=== PATIENT | female | born 1935 | race Caucasian/White ===

== ENCOUNTER 2023-01-17 16:37 | Inpatient (IN) | payer MEDICARE ==
[2023-01-17 17:05] LABS: INR-International Normal Ratio 1.2; Prothrombin Time 16.1 sec (12.0-14.7)
[2023-01-17 19:34] LABS: SARS-CoV-2 NAA Rapid Test Not Detected (NotDetected)
[2023-01-17] MEDS ORDERED: Metoprolol Tartrate 5 MG/5 ML VIAL ONE (20:08)
[2023-01-17] MEDS ORDERED: NOREPINEPHRINE 8 MG/250 ML-D5W 250 ML IVPB SCH (21:15)
[2023-01-17] MEDS ORDERED: Acetaminophen 325 MG TAB PO PRN (21:31)
[2023-01-17] MEDS ORDERED: Ondansetron PF 4 MG/2 ML Vial IVP PRN (21:31)
[2023-01-17] MEDS ORDERED: Nitroglycerin 0.4 MG TAB (25 Tab Bottle) SL PRN (21:31)
[2023-01-17] MEDS ORDERED: Metoprolol Tartrate 25 MG TAB PO SCH (21:45)
[2023-01-17] MEDS ORDERED: Atorvastatin Calcium 40 MG TAB PO SCH (21:45)
[2023-01-17 22:11] LABS: Hemoglobin 13.7 g/dL (12.0-16.0); Platelet Count 170 10x3/uL (130-400)
[2023-01-17] MEDS ORDERED: Sodium Chloride 0.9% 1,000 ML IV SCH (22:15)
[2023-01-17 22:38] LABS: Troponin I 23.551 ng/mL (< 0.028)
[2023-01-17 22:52] VITALS: BMI 23.8
[2023-01-17] MEDS: Montelukast Sodium 10 mg Tablet PO SCH (23:33)
[2023-01-18] MEDS ORDERED: Morphine 2 MG/ML VIAL SLOW IVP SCH (01:00)
[2023-01-18 03:47] LABS: #Lymphocytes 0.7 thou/uL (1.20-3.40); #Neutrophils 13.2 thou/uL (1.40-6.50); %Basophils 0.1 % (0.0-1.0); %Eosinophils 0.1 % (0.0-10.0); %Lymphocytes 4.7 % (21.0-51.0); %Monocytes 6.8 % (0.0-10.0); %Neutrophils 88.4 % (42.0-75.0); Mean Corpuscular HGB CONC 31.9 g/dL (32.0-36.0); Mean Corpuscular Hemoglobin 29.1 pg (27.0-31.0); Mean Corpuscular Volume 91.2 fl (78.0-98.0); Mean Platelet Volume 8.4 fL (7.4-10.4); Platelet Count 148 10x3/uL (130-400); RBC Distribution Width 12.3 % (11.5-14.5); Red Blood Cell (RBC) Count 4.82 mill/uL (4.20-5.40); White Blood Cell (WBC) Count 14.9 10x3/uL (4.8-10.8)
[2023-01-18 04:07] LABS: Anion Gap 13 mmol/L (10-20); BUN (Urea Nitrogen) 16 mg/dL (9.8-20.1); Calc. Creatinine Clearance 48 mL/min (70-130); Carbon Dioxide 20 mmol/L (23-31); Cardiac Risk 2.9 (Less than 4.5); Chloride 101 mmol/L (98-107); Cholesterol 178 mg/dl (< 200 Desired); Estimated GFR 83; Glucose 190 mg/dL (83-110); HDL Cholesterol 61 mg/dL (>60 Neg Risk); LDL Cholesterol, Calculated 105 mg/dL; Potassium 4.4 mmol/L (3.5-5.1); Sodium 130 mmol/L (136-145); Triglycerides 60 mg/dL (Less than 150)
[2023-01-18 04:24] LABS: Critical Call Chem Troponin I RESULT DECREASING
[2023-01-18] MEDS: Levothyroxine Sodium 100 MCG TAB PO SCH (05:37)
[2023-01-18] MEDS: Metoprolol Tartrate 25 MG TAB PO SCH ×2 (07:29→20:49)
[2023-01-18] MEDS ORDERED: Furosemide 20 MG/2 ML VIAL SLOW IVP SCH (08:00)
[2023-01-18] MEDS: Aspirin 325 mg Enteric Coated Tablet PO SCH (08:01)
[2023-01-18] MEDS: DOPamine 400 MG/D5W 250 ML 250 ML IVPB SCH (08:02)
[2023-01-18] MEDS ORDERED: Milrinone 20 MG in Sodium Chloride 0.9% 100 ML IVPB SCH (11:30)
[2023-01-18] MEDS: Heparin 10,000 UNITS/ 10 ML VIAL SLOW IVP SCH (12:24)
[2023-01-18] MEDS: Milrinone Lactate/D5W 20 MG in Premix Bag 1 BAG IV SCH (16:46)
[2023-01-18 18:46] LABS: PTT 155.7 sec (22.9-36.1)
[2023-01-18] MEDS: Atorvastatin Calcium 40 MG TAB PO SCH (20:56)
[2023-01-18] MEDS: Montelukast Sodium 10 mg Tablet PO SCH (20:56)
[2023-01-19] MEDS: DOPamine 400 MG/D5W 250 ML 250 ML IVPB SCH (01:06)
[2023-01-19 04:27] LABS: #Lymphocytes 1.6 thou/uL (1.20-3.40); #Monocytes 1.1 thou/uL (0.11-0.59); %Basophils 0.2 % (0.0-1.0); %Lymphocytes 9.3 % (21.0-51.0); %Monocytes 6.7 % (0.0-10.0); %Neutrophils 83.8 % (42.0-75.0); Hemoglobin 12.8 g/dL (12.0-16.0); Mean Corpuscular HGB CONC 33.1 g/dL (32.0-36.0); Mean Corpuscular Hemoglobin 29.7 pg (27.0-31.0); Mean Platelet Volume 8.6 fL (7.4-10.4); Platelet Count 158 10x3/uL (130-400); RBC Distribution Width 12.2 % (11.5-14.5); Red Blood Cell (RBC) Count 4.32 mill/uL (4.20-5.40); White Blood Cell (WBC) Count 16.7 10x3/uL (4.8-10.8)
[2023-01-19 04:35] LABS: Hemoglobin A1c 5.7 % (4.0-6.0)
[2023-01-19 04:54] LABS: ALT (SGPT) 26 U/L (8-55); AST (SGOT) 69 U/L (5-34); Alkaline Phosphatase 80 U/L (40-110); Anion Gap 11 mmol/L (10-20); BUN (Urea Nitrogen) 24 mg/dL (9.8-20.1); Bilirubin, Total 0.7 mg/dL (0.2-1.2); Calc. Creatinine Clearance 45 mL/min (70-130); Calcium 10.1 mg/dL (7.8-10.44); Carbon Dioxide 23 mmol/L (23-31); Chloride 97 mmol/L (98-107); Estimated GFR 76; Globulin 2.4 g/dL (2.4-3.5); Glucose 125 mg/dL (83-110); Magnesium 1.8 mg/dL (1.6-2.6); Potassium 4.1 mmol/L (3.5-5.1); Protein, Total 5.4 g/dL (5.8-8.1); Sodium 127 mmol/L (136-145)
[2023-01-19] MEDS: Heparin 10,000 UNITS/ 10 ML VIAL SLOW IVP SCH ×2 (04:56→11:58)
[2023-01-19] MEDS: Levothyroxine Sodium 100 MCG TAB PO SCH (06:53)
[2023-01-19] MEDS: Metoprolol Tartrate 25 MG TAB PO SCH (08:19)
[2023-01-19] MEDS: Aspirin 325 mg Enteric Coated Tablet PO SCH (08:28)
[2023-01-19] MEDS: Metoprolol Tartrate 5 MG/5 ML VIAL IVP PRN (09:32)
[2023-01-19] MEDS: Heparin 25,000 units/D5W 500 ML IVPB SCH (09:35)
[2023-01-19] MEDS ORDERED: Metoprolol Tartrate 5 MG/5 ML VIAL IVP SCH (16:00)
[2023-01-19] MEDS: Montelukast Sodium 10 mg Tablet PO SCH (20:52)
[2023-01-19] MEDS: Atorvastatin Calcium 40 MG TAB PO SCH (22:18)
[2023-01-19 22:47] LABS: Hemoglobin 12.3 g/dL (12.0-16.0); Platelet Count 149 10x3/uL (130-400)
[2023-01-20] MEDS: Metoprolol Tartrate 25 MG TAB PO SCH ×5 (01:16→20:22)
[2023-01-20] MEDS: ALPRAZolam 0.25 MG TAB PO SCH ×3 (01:16→20:22)
[2023-01-20] MEDS: DOPamine 400 MG/D5W 250 ML 250 ML IVPB SCH ×2 (02:51→14:26)
[2023-01-20] MEDS: Milrinone Lactate/D5W 20 MG in Premix Bag 1 BAG IV SCH ×2 (02:51→23:59)
[2023-01-20 04:22] LABS: #Lymphocytes 1.2 thou/uL (1.20-3.40); #Monocytes 0.7 thou/uL (0.11-0.59); #Neutrophils 8.4 thou/uL (1.40-6.50); %Basophils 0.1 % (0.0-1.0); %Eosinophils 0.1 % (0.0-10.0); %Lymphocytes 11.6 % (21.0-51.0); %Neutrophils 81.1 % (42.0-75.0); Hemoglobin 12.2 g/dL (12.0-16.0); Mean Corpuscular HGB CONC 32.2 g/dL (32.0-36.0); Mean Corpuscular Hemoglobin 28.8 pg (27.0-31.0); Mean Corpuscular Volume 89.4 fl (78.0-98.0); Mean Platelet Volume 8.1 fL (7.4-10.4); Platelet Count 151 10x3/uL (130-400); RBC Distribution Width 11.9 % (11.5-14.5); Red Blood Cell (RBC) Count 4.25 mill/uL (4.20-5.40); White Blood Cell (WBC) Count 10.3 10x3/uL (4.8-10.8)
[2023-01-20 04:42] LABS: Anion Gap 12 mmol/L (10-20); BUN (Urea Nitrogen) 20 mg/dL (9.8-20.1); Calc. Creatinine Clearance 54 mL/min (70-130); Calcium 9.6 mg/dL (7.8-10.44); Carbon Dioxide 23 mmol/L (23-31); Chloride 95 mmol/L (98-107); Estimated GFR 84; Glucose 158 mg/dL (83-110); Magnesium 1.8 mg/dL (1.6-2.6); Potassium 3.7 mmol/L (3.5-5.1); Sodium 126 mmol/L (136-145)
[2023-01-20] MEDS: Levothyroxine Sodium 100 MCG TAB PO SCH (06:08)
[2023-01-20] MEDS: Aspirin 325 mg Enteric Coated Tablet PO SCH (09:31)
[2023-01-20] MEDS ORDERED: Artificial Tear Sol 15 ML BOT EA EYE PRN (09:55)
[2023-01-20] MEDS ORDERED: Bisacodyl 5 MG TAB PO PRN (09:55)
[2023-01-20] MEDS ORDERED: Senokot S 8.6-50 MG TAB PO PRN (09:55)
[2023-01-20] MEDS ORDERED: Moisturizing Cream (Eucerin) 113 GM JAR TOP PRN (09:55)
[2023-01-20] MEDS ORDERED: Polyethylene Glycol 3350 17 GM Packet PO SCH (10:00)
[2023-01-20] MEDS: Heparin 25,000 units/D5W 500 ML IVPB SCH (18:18)
[2023-01-20] MEDS: Atorvastatin Calcium 40 MG TAB PO SCH (20:22)
[2023-01-20] MEDS: Montelukast Sodium 10 mg Tablet PO SCH (20:22)
[2023-01-21] MEDS: DOPamine 400 MG/D5W 250 ML 250 ML IVPB SCH ×2 (02:05→23:39)
[2023-01-21 04:34] LABS: Bacteria/HPF None Seen HPF (None Seen); Bilirubin Negative (Negative); Blood, Urine 1+ (Negative); Clarity Clear (Clear); Glucose, Urine (Dipstick) Normal (Negative); Ketone, Urine Negative (Negative); Leukocyte 500 Leu/uL (Negative); Nitrite Negative (Negative); Protein, Urine (Dipstick) Negative (Neg-Trace); Specific Gravity, Urine 1.014 (1.002-1.036); Squamous Epithelial None Seen HPF (0-3); Urobilinogen 3 mg/dL (Less than 2); WBC/HPF 21-50 HPF (0-3)
[2023-01-21] MEDS: Levothyroxine Sodium 100 MCG TAB PO SCH (06:04)
[2023-01-21 06:33] LABS: Hemoglobin 11.8 g/dL (12.0-16.0); Platelet Count 164 10x3/uL (130-400)
[2023-01-21 06:56] LABS: Anion Gap 8 mmol/L (10-20); BUN (Urea Nitrogen) 18 mg/dL (9.8-20.1); Calc. Creatinine Clearance 52 mL/min (70-130); Calcium 9.4 mg/dL (7.8-10.44); Carbon Dioxide 28 mmol/L (23-31); Chloride 97 mmol/L (98-107); Estimated GFR 84; Glucose 145 mg/dL (83-110); Potassium 3.8 mmol/L (3.5-5.1); Sodium 129 mmol/L (136-145)
[2023-01-21] MEDS: ALPRAZolam 0.25 MG TAB PO SCH ×2 (08:48→22:09)
[2023-01-21] MEDS: Aspirin 325 mg Enteric Coated Tablet PO SCH (08:48)
[2023-01-21] MEDS: Metoprolol Tartrate 25 MG TAB PO SCH ×2 (08:49→19:36)
[2023-01-21] MEDS ORDERED: FLU VACC QS2022-23(65YR UP)/PF 240 MCG/0.7 ML SYRINGE IM ONE (09:00)
[2023-01-21] MEDS: Polyethylene Glycol 3350 17 GM Packet PO SCH (10:04)
[2023-01-21] MEDS ORDERED: Furosemide 40 MG/4 ML VIAL SLOW IVP SCH (10:45)
[2023-01-21] MEDS: Montelukast Sodium 10 mg Tablet PO SCH (19:36)
[2023-01-21] MEDS: Atorvastatin Calcium 40 MG TAB PO SCH (19:36)
[2023-01-21] MEDS: Milrinone Lactate/D5W 20 MG in Premix Bag 1 BAG IV SCH (19:36)
[2023-01-22] MEDS: Metoprolol Tartrate 5 MG/5 ML VIAL IVP PRN ×2 (03:57→13:16)
[2023-01-22 05:35] LABS: Anion Gap 10 mmol/L (10-20); BUN (Urea Nitrogen) 19 mg/dL (9.8-20.1); Calc. Creatinine Clearance 50 mL/min (70-130); Calcium 9.3 mg/dL (7.8-10.44); Carbon Dioxide 27 mmol/L (23-31); Chloride 97 mmol/L (98-107); Estimated GFR 83; Glucose 136 mg/dL (83-110); Potassium 3.4 mmol/L (3.5-5.1); Sodium 131 mmol/L (136-145)
[2023-01-22 05:55] LABS: Free T4 (Free Thyroxine) 1.26 ng/dL (0.70-1.48)
[2023-01-22] MEDS: Levothyroxine Sodium 100 MCG TAB PO SCH (06:24)
[2023-01-22] MEDS: Aspirin 325 mg Enteric Coated Tablet PO SCH (08:48)
[2023-01-22] MEDS: Polyethylene Glycol 3350 17 GM Packet PO SCH (08:48)
[2023-01-22] MEDS: ALPRAZolam 0.25 MG TAB PO SCH ×2 (08:48→20:38)
[2023-01-22] MEDS: Famotidine 20 MG TAB PO SCH (08:48)
[2023-01-22] MEDS: Metoprolol Tartrate 25 MG TAB PO SCH ×2 (08:48→20:39)
[2023-01-22] MEDS ORDERED: Metoprolol Tartrate 5 MG/5 ML VIAL ONE (13:14)
[2023-01-22] MEDS: DOPamine 400 MG/D5W 250 ML 250 ML IVPB SCH (13:16)
[2023-01-22] MEDS ORDERED: Fleet Enema 133 ML BOT PR SCH (17:45)
[2023-01-22] MEDS: Atorvastatin Calcium 40 MG TAB PO SCH (20:39)
[2023-01-22] MEDS: Montelukast Sodium 10 mg Tablet PO SCH (20:39)
[2023-01-23] MEDS: Milrinone Lactate/D5W 20 MG in Premix Bag 1 BAG IV SCH (00:33)
[2023-01-23] MEDS: DOPamine 400 MG/D5W 250 ML 250 ML IVPB SCH ×2 (00:37→23:48)
[2023-01-23] MEDS: Levothyroxine Sodium 100 MCG TAB PO SCH (06:02)
[2023-01-23 09:04] LABS: Hemoglobin 12.6 g/dL (12.0-16.0); Platelet Count 190 10x3/uL (130-400)
[2023-01-23 09:21] LABS: Anion Gap 12 mmol/L (10-20); BUN (Urea Nitrogen) 14 mg/dL (9.8-20.1); Calc. Creatinine Clearance 51 mL/min (70-130); Calcium 9.7 mg/dL (7.8-10.44); Carbon Dioxide 26 mmol/L (23-31); Chloride 97 mmol/L (98-107); Estimated GFR 84; Glucose 144 mg/dL (83-110); Potassium 3.7 mmol/L (3.5-5.1); Sodium 131 mmol/L (136-145)
[2023-01-23] MEDS: Famotidine 20 MG TAB PO SCH (09:40)
[2023-01-23] MEDS: ALPRAZolam 0.25 MG TAB PO SCH ×2 (09:40→20:30)
[2023-01-23] MEDS: Metoprolol Tartrate 25 MG TAB PO SCH ×2 (09:40→20:30)
[2023-01-23] MEDS: Aspirin 325 mg Enteric Coated Tablet PO SCH (09:40)
[2023-01-23] MEDS: Polyethylene Glycol 3350 17 GM Packet PO SCH (09:41)
[2023-01-23] MEDS: Montelukast Sodium 10 mg Tablet PO SCH (20:30)
[2023-01-23] MEDS: Atorvastatin Calcium 40 MG TAB PO SCH (20:31)
[2023-01-24 03:55] LABS: Anion Gap 11 mmol/L (10-20); BUN (Urea Nitrogen) 13 mg/dL (9.8-20.1); Calc. Creatinine Clearance 50 mL/min (70-130); Calcium 9.5 mg/dL (7.8-10.44); Carbon Dioxide 24 mmol/L (23-31); Chloride 99 mmol/L (98-107); Estimated GFR 83; Glucose 136 mg/dL (83-110); Potassium 3.7 mmol/L (3.5-5.1); Sodium 130 mmol/L (136-145)
[2023-01-24] MEDS: Levothyroxine Sodium 100 MCG TAB PO SCH (05:20)
[2023-01-24] MEDS: ALPRAZolam 0.25 MG TAB PO SCH ×2 (09:14→21:26)
[2023-01-24] MEDS: Aspirin 325 mg Enteric Coated Tablet PO SCH (09:14)
[2023-01-24] MEDS: Polyethylene Glycol 3350 17 GM Packet PO SCH (09:15)
[2023-01-24] MEDS: Famotidine 20 MG TAB PO SCH (09:15)
[2023-01-24] MEDS: Ivabradine 5 MG TAB PO SCH ×2 (10:11→21:26)
[2023-01-24] MEDS: Montelukast Sodium 10 mg Tablet PO SCH (21:26)
[2023-01-24] MEDS: Atorvastatin Calcium 40 MG TAB PO SCH (21:26)
[2023-01-24] MEDS: DOPamine 400 MG/D5W 250 ML 250 ML IVPB SCH (22:56)
[2023-01-25] MEDS: Milrinone Lactate/D5W 20 MG in Premix Bag 1 BAG IV SCH (00:03)
[2023-01-25 03:52] LABS: Hemoglobin 11.9 g/dL (12.0-16.0); Platelet Count 206 10x3/uL (130-400)
[2023-01-25 04:39] LABS: Anion Gap 12 mmol/L (10-20); BUN (Urea Nitrogen) 10 mg/dL (9.8-20.1); Calc. Creatinine Clearance 50 mL/min (70-130); Calcium 9.5 mg/dL (7.8-10.44); Carbon Dioxide 25 mmol/L (23-31); Chloride 99 mmol/L (98-107); Estimated GFR 84; Glucose 143 mg/dL (83-110); Potassium 3.5 mmol/L (3.5-5.1); Sodium 132 mmol/L (136-145)
[2023-01-25] MEDS: Levothyroxine Sodium 100 MCG TAB PO SCH (06:51)
[2023-01-25] MEDS: Aspirin 325 mg Enteric Coated Tablet PO SCH (09:40)
[2023-01-25] MEDS: Famotidine 20 MG TAB PO SCH (09:40)
[2023-01-25] MEDS: Polyethylene Glycol 3350 17 GM Packet PO SCH (09:40)
[2023-01-25] MEDS: Ivabradine 5 MG TAB PO SCH ×2 (09:40→20:19)
[2023-01-25] MEDS: ALPRAZolam 0.25 MG TAB PO SCH ×2 (09:41→20:19)
[2023-01-25] MEDS: Montelukast Sodium 10 mg Tablet PO SCH (20:19)
[2023-01-25] MEDS: Atorvastatin Calcium 40 MG TAB PO SCH (20:19)
[2023-01-26 04:37] LABS: Anion Gap 10 mmol/L (10-20); BUN (Urea Nitrogen) 13 mg/dL (9.8-20.1); Calc. Creatinine Clearance 49 mL/min (70-130); Calcium 9.3 mg/dL (7.8-10.44); Carbon Dioxide 27 mmol/L (23-31); Chloride 98 mmol/L (98-107); Estimated GFR 83; Glucose 112 mg/dL (83-110); Potassium 3.5 mmol/L (3.5-5.1); Sodium 131 mmol/L (136-145)
[2023-01-26] MEDS: Levothyroxine Sodium 100 MCG TAB PO SCH (06:16)
[2023-01-26] MEDS: Milrinone Lactate/D5W 20 MG in Premix Bag 1 BAG IV SCH ×2 (06:16→20:23)
[2023-01-26] MEDS: Ivabradine 5 MG TAB PO SCH ×2 (09:15→20:04)
[2023-01-26] MEDS: ALPRAZolam 0.25 MG TAB PO SCH ×2 (09:15→20:04)
[2023-01-26] MEDS: Aspirin 325 mg Enteric Coated Tablet PO SCH (09:15)
[2023-01-26] MEDS: Famotidine 20 MG TAB PO SCH (09:16)
[2023-01-26] MEDS: Polyethylene Glycol 3350 17 GM Packet PO SCH (09:16)
[2023-01-26] MEDS: Montelukast Sodium 10 mg Tablet PO SCH (20:04)
[2023-01-26] MEDS: Atorvastatin Calcium 40 MG TAB PO SCH (20:04)
[2023-01-27 04:35] LABS: Hemoglobin 10.7 g/dL (12.0-16.0); Platelet Count 212 10x3/uL (130-400)
[2023-01-27 04:57] LABS: Anion Gap 11 mmol/L (10-20); BUN (Urea Nitrogen) 12 mg/dL (9.8-20.1); Calc. Creatinine Clearance 48 mL/min (70-130); Calcium 9.1 mg/dL (7.8-10.44); Carbon Dioxide 27 mmol/L (23-31); Chloride 98 mmol/L (98-107); Estimated GFR 83; Glucose 86 mg/dL (83-110); Potassium 3.5 mmol/L (3.5-5.1); Sodium 132 mmol/L (136-145)
[2023-01-27] MEDS: Levothyroxine Sodium 100 MCG TAB PO SCH (06:01)
[2023-01-27] MEDS: ALPRAZolam 0.25 MG TAB PO SCH ×2 (09:19→20:24)
[2023-01-27] MEDS: Aspirin 325 mg Enteric Coated Tablet PO SCH (09:19)
[2023-01-27] MEDS: Polyethylene Glycol 3350 17 GM Packet PO SCH (09:19)
[2023-01-27] MEDS: Famotidine 20 MG TAB PO SCH (09:19)
[2023-01-27] MEDS: Ivabradine 5 MG TAB PO SCH ×2 (09:19→20:24)
[2023-01-27] MEDS: Montelukast Sodium 10 mg Tablet PO SCH (20:24)
[2023-01-27] MEDS: Atorvastatin Calcium 40 MG TAB PO SCH (20:24)
[2023-01-28] MEDS: Levothyroxine Sodium 100 MCG TAB PO SCH (06:19)
[2023-01-28 06:52] LABS: Anion Gap 12 mmol/L (10-20); BUN (Urea Nitrogen) 8 mg/dL (9.8-20.1); Calc. Creatinine Clearance 50 mL/min (70-130); Calcium 9.1 mg/dL (7.8-10.44); Carbon Dioxide 27 mmol/L (23-31); Chloride 100 mmol/L (98-107); Estimated GFR 84; Glucose 85 mg/dL (83-110); Potassium 3.5 mmol/L (3.5-5.1); Sodium 135 mmol/L (136-145)
[2023-01-28 09:22] LABS: #Eosinphils 0.3 thou/uL (0.0-0.7); #Monocytes 0.5 thou/uL (0.11-0.59); #Neutrophils 3.8 thou/uL (1.40-6.50); %Basophils 0.2 % (0.0-1.0); %Eosinophils 4.7 % (0.0-10.0); %Lymphocytes 18.5 % (21.0-51.0); %Neutrophils 67.6 % (42.0-75.0); Hemoglobin 11.9 g/dL (12.0-16.0); Mean Corpuscular HGB CONC 32.8 g/dL (32.0-36.0); Mean Corpuscular Hemoglobin 29.4 pg (27.0-31.0); Mean Corpuscular Volume 89.6 fl (78.0-98.0); Mean Platelet Volume 6.9 fL (7.4-10.4); Platelet Count 246 10x3/uL (130-400); RBC Distribution Width 11.6 % (11.5-14.5); Red Blood Cell (RBC) Count 4.05 mill/uL (4.20-5.40); White Blood Cell (WBC) Count 5.6 10x3/uL (4.8-10.8)
[2023-01-28] MEDS: Aspirin 325 mg Enteric Coated Tablet PO SCH (09:33)
[2023-01-28] MEDS: Ivabradine 5 MG TAB PO SCH ×2 (09:33→20:31)
[2023-01-28] MEDS: Polyethylene Glycol 3350 17 GM Packet PO SCH (09:33)
[2023-01-28] MEDS: ALPRAZolam 0.25 MG TAB PO SCH ×2 (09:33→20:31)
[2023-01-28] MEDS: Famotidine 20 MG TAB PO SCH (09:33)
[2023-01-28] MEDS: Atorvastatin Calcium 40 MG TAB PO SCH (20:31)
[2023-01-28] MEDS: Montelukast Sodium 10 mg Tablet PO SCH (20:31)
[2023-01-29 03:56] LABS: Hemoglobin 10.4 g/dL (12.0-16.0); Platelet Count 253 10x3/uL (130-400)
[2023-01-29 04:21] LABS: Anion Gap 11 mmol/L (10-20); BUN (Urea Nitrogen) 8 mg/dL (9.8-20.1); Calc. Creatinine Clearance 49 mL/min (70-130); Calcium 9.2 mg/dL (7.8-10.44); Carbon Dioxide 28 mmol/L (23-31); Chloride 99 mmol/L (98-107); Estimated GFR 84; Glucose 78 mg/dL (83-110); Potassium 3.5 mmol/L (3.5-5.1); Sodium 134 mmol/L (136-145)
[2023-01-29] MEDS: Levothyroxine Sodium 100 MCG TAB PO SCH (05:03)
[2023-01-29] MEDS: Famotidine 20 MG TAB PO SCH (09:52)
[2023-01-29] MEDS: Aspirin 325 mg Enteric Coated Tablet PO SCH (09:52)
[2023-01-29] MEDS: Polyethylene Glycol 3350 17 GM Packet PO SCH (09:52)
[2023-01-29] MEDS: ALPRAZolam 0.25 MG TAB PO SCH ×2 (09:52→20:38)
[2023-01-29] MEDS: Ivabradine 5 MG TAB PO SCH ×2 (09:55→20:38)
[2023-01-29] MEDS ORDERED: Spironolactone 25 MG TAB PO SCH (15:30)
[2023-01-29] MEDS ORDERED: Clopidogrel Bisulfate 75 MG TAB PO SCH (16:30)
[2023-01-29] MEDS ORDERED: Lisinopril 2.5 MG TAB PO SCH (16:30)
[2023-01-29 19:22] LABS: Bacteria/HPF 4+ HPF (None Seen); Bilirubin Negative (Negative); Blood, Urine 3+ (Negative); Clarity Extra Turbid (Clear); Glucose, Urine (Dipstick) Normal (Negative); Ketone, Urine Trace mg/dL (Negative); Leukocyte 500 Leu/uL (Negative); Nitrite Negative (Negative); Protein, Urine (Dipstick) 100 mg/dL (Neg-Trace); RBC/HPF Greater than 50 HPF (0-3); Specific Gravity, Urine 1.011 (1.002-1.036); Squamous Epithelial None Seen HPF (0-3); Urobilinogen 3 mg/dL (Less than 2); WBC/HPF Greater than 50 HPF (0-3)
[2023-01-29] MEDS: Atorvastatin Calcium 40 MG TAB PO SCH (20:38)
[2023-01-29] MEDS: Montelukast Sodium 10 mg Tablet PO SCH (20:38)
[2023-01-29] MEDS: Cefepime 1 GM in Sodium Chloride 0.9% 100 ML IVPB SCH (22:31)
[2023-01-30 04:48] LABS: Anion Gap 9 mmol/L (10-20); BUN (Urea Nitrogen) 7 mg/dL (9.8-20.1); Calc. Creatinine Clearance 51 mL/min (70-130); Calcium 8.9 mg/dL (7.8-10.44); Carbon Dioxide 25 mmol/L (23-31); Chloride 100 mmol/L (98-107); Estimated GFR 84; Glucose 82 mg/dL (83-110); Potassium 3.4 mmol/L (3.5-5.1); Sodium 131 mmol/L (136-145)
[2023-01-30] MEDS: Levothyroxine Sodium 100 MCG TAB PO SCH (05:30)
[2023-01-30] MEDS: Spironolactone 25 MG TAB PO SCH (08:08)
[2023-01-30] MEDS: Clopidogrel Bisulfate 75 MG TAB PO SCH (09:14)
[2023-01-30] MEDS: ALPRAZolam 0.25 MG TAB PO SCH ×2 (09:14→20:46)
[2023-01-30] MEDS: Famotidine 20 MG TAB PO SCH (09:14)
[2023-01-30] MEDS: Ivabradine 5 MG TAB PO SCH ×2 (09:14→20:46)
[2023-01-30] MEDS: Aspirin 325 mg Enteric Coated Tablet PO SCH (09:14)
[2023-01-30] MEDS: Lisinopril 2.5 MG TAB PO SCH (09:15)
[2023-01-30] MEDS: Polyethylene Glycol 3350 17 GM Packet PO SCH (09:15)
[2023-01-30] MEDS: Cefepime 1 GM in Sodium Chloride 0.9% 100 ML IVPB SCH ×2 (10:54→21:21)
[2023-01-30] MEDS: Montelukast Sodium 10 mg Tablet PO SCH (20:46)
[2023-01-30] MEDS: Atorvastatin Calcium 40 MG TAB PO SCH (20:46)
[2023-01-31 04:46] LABS: Hemoglobin 10.8 g/dL (12.0-16.0); Platelet Count 251 10x3/uL (130-400)
[2023-01-31 05:02] LABS: Anion Gap 10 mmol/L (10-20); BUN (Urea Nitrogen) 7 mg/dL (9.8-20.1); Calc. Creatinine Clearance 51 mL/min (70-130); Carbon Dioxide 25 mmol/L (23-31); Chloride 101 mmol/L (98-107); Estimated GFR 84; Glucose 86 mg/dL (83-110); Potassium 3.3 mmol/L (3.5-5.1); Sodium 133 mmol/L (136-145)
[2023-01-31] MEDS: Levothyroxine Sodium 100 MCG TAB PO SCH (05:50)
[2023-01-31] MEDS: Clopidogrel Bisulfate 75 MG TAB PO SCH (08:47)
[2023-01-31] MEDS: Ivabradine 5 MG TAB PO SCH ×2 (08:47→21:08)
[2023-01-31] MEDS: Aspirin 325 mg Enteric Coated Tablet PO SCH (08:48)
[2023-01-31] MEDS: Lisinopril 2.5 MG TAB PO SCH (08:48)
[2023-01-31] MEDS: ALPRAZolam 0.25 MG TAB PO SCH ×2 (08:49→21:07)
[2023-01-31] MEDS: Famotidine 20 MG TAB PO SCH (08:49)
[2023-01-31] MEDS: Spironolactone 25 MG TAB PO SCH (08:50)
[2023-01-31] MEDS: Polyethylene Glycol 3350 17 GM Packet PO SCH (08:53)
[2023-01-31] MEDS: Cefepime 1 GM in Sodium Chloride 0.9% 100 ML IVPB SCH ×2 (10:33→21:09)
[2023-01-31] MEDS ORDERED: Potassium Chloride 20 MEQ TAB PO SCH (17:45)
[2023-01-31] MEDS: Atorvastatin Calcium 40 MG TAB PO SCH (21:07)
[2023-01-31] MEDS: Montelukast Sodium 10 mg Tablet PO SCH (21:08)
[2023-02-01] MEDS: Levothyroxine Sodium 100 MCG TAB PO SCH (05:49)
[2023-02-01 07:01] LABS: Anion Gap 9 mmol/L (10-20); BUN (Urea Nitrogen) 8 mg/dL (9.8-20.1); Calc. Creatinine Clearance 56 mL/min (70-130); Calcium 9.2 mg/dL (7.8-10.44); Carbon Dioxide 25 mmol/L (23-31); Chloride 104 mmol/L (98-107); Estimated GFR 85; Glucose 81 mg/dL (83-110); Potassium 4.1 mmol/L (3.5-5.1); Sodium 134 mmol/L (136-145)
[2023-02-01] MEDS: Cefepime 1 GM in Sodium Chloride 0.9% 100 ML IVPB SCH ×2 (09:38→21:59)
[2023-02-01] MEDS: ALPRAZolam 0.25 MG TAB PO SCH ×2 (09:38→20:27)
[2023-02-01] MEDS: Aspirin 325 mg Enteric Coated Tablet PO SCH (09:38)
[2023-02-01] MEDS: Famotidine 20 MG TAB PO SCH (09:39)
[2023-02-01] MEDS: Clopidogrel Bisulfate 75 MG TAB PO SCH (09:39)
[2023-02-01] MEDS: Lisinopril 2.5 MG TAB PO SCH (09:39)
[2023-02-01] MEDS: Polyethylene Glycol 3350 17 GM Packet PO SCH (09:40)
[2023-02-01] MEDS: Spironolactone 25 MG TAB PO SCH (09:41)
[2023-02-01] MEDS: Ivabradine 5 MG TAB PO SCH ×2 (09:44→20:27)
[2023-02-01 12:11] VITALS: BP 125/57
[2023-02-01] MEDS: Atorvastatin Calcium 40 MG TAB PO SCH (20:27)
[2023-02-01] MEDS: Montelukast Sodium 10 mg Tablet PO SCH (20:27)
[2023-02-02] MEDS: Levothyroxine Sodium 100 MCG TAB PO SCH (06:24)
[2023-02-02 08:04] VITALS: TEMP 98
[2023-02-02 08:09] LABS: Hemoglobin 10.8 g/dL (12.0-16.0); Platelet Count 276 10x3/uL (130-400)
[2023-02-02 08:32] LABS: Anion Gap 9 mmol/L (10-20); BUN (Urea Nitrogen) 9 mg/dL (9.8-20.1); Calc. Creatinine Clearance 55 mL/min (70-130); Calcium 9.2 mg/dL (7.8-10.44); Carbon Dioxide 22 mmol/L (23-31); Chloride 105 mmol/L (98-107); Estimated GFR 85; Glucose 88 mg/dL (83-110); Potassium 4.1 mmol/L (3.5-5.1); Sodium 132 mmol/L (136-145)
[2023-02-02] MEDS: Spironolactone 25 MG TAB PO SCH (09:02)
[2023-02-02] MEDS: Aspirin 325 mg Enteric Coated Tablet PO SCH (09:02)
[2023-02-02] MEDS: ALPRAZolam 0.25 MG TAB PO SCH (09:02)
[2023-02-02] MEDS: Clopidogrel Bisulfate 75 MG TAB PO SCH (09:02)
[2023-02-02] MEDS: Famotidine 20 MG TAB PO SCH (09:02)
[2023-02-02] MEDS: Lisinopril 2.5 MG TAB PO SCH (09:02)
[2023-02-02] MEDS: Ivabradine 5 MG TAB PO SCH (09:03)
[2023-02-02] MEDS: Polyethylene Glycol 3350 17 GM Packet PO SCH (09:03)
[2023-02-02] MEDS: Cefepime 1 GM in Sodium Chloride 0.9% 100 ML IVPB SCH (09:03)
== END 2023-02-02 10:00 | disposition swing bed (61) | DRG 280 ==
LOC: ERS 16:37 → IMCU/EMU 21:31
PROVIDERS: ADMIT Student in an Organized Health Care Education/Training Program; ATTEND Internal Medicine
DX: I21.19 ST elevation (STEMI) myocardial infarction involving other coronary artery of inferior wall (principal); I50.21 Acute systolic (congestive) heart failure; R57.0 Cardiogenic shock; J96.01 Acute respiratory failure with hypoxia; E87.1 Hypo-osmolality and hyponatremia; N39.0 Urinary tract infection, site not specified; Z20.822 Contact with and (suspected) exposure to COVID-19; E03.9 Hypothyroidism, unspecified; Z66 Do not resuscitate; I95.9 Hypotension, unspecified; Z51.5 Encounter for palliative care; J45.909 Unspecified asthma, uncomplicated; E11.9 Type 2 diabetes mellitus without complications; M19.90 Unspecified osteoarthritis, unspecified site; I25.5 Ischemic cardiomyopathy; R33.9 Retention of urine, unspecified; E78.00 Pure hypercholesterolemia, unspecified; E87.6 Hypokalemia; I11.0 Hypertensive heart disease with heart failure; I35.0 Nonrheumatic aortic (valve) stenosis; Z88.1 Allergy status to other antibiotic agents; Z79.890 Hormone replacement therapy; Z79.899 Other long term (current) drug therapy; Z82.49 Family history of ischemic heart disease and other diseases of the circulatory system; Z98.41 Cataract extraction status, right eye; Z98.42 Cataract extraction status, left eye; Z88.0 Allergy status to penicillin
CPT/HCPCS: 36415; 36416; 71045; 80048; 80053; 80061; 81001; 81003; 81015; 82533; 83036; 83735; 83880; 83930; 83935; 84300; 84439; 84443; 84481; 84484; 85014; 85018; 85025; 85049; 85730; 93005; 93010; 93306; 93798; 96365; 96366; 96374; J0692; J1265; J1644; J1650; J1940; J2260; J2272; J3490; U0002

== ENCOUNTER 2023-06-26 13:36 | Inpatient (IN) | payer MEDICARE ==
[2023-06-26 14:21] LABS: #Monocytes 0.5 thou/uL (0.11-0.59); #Neutrophils 7.8 thou/uL (1.40-6.50); %Basophils 0.1 % (0.0-1.0); %Monocytes 4.8 % (0.0-10.0); %Neutrophils 83.8 % (42.0-75.0); Hematocrit 32.8 % (36.0-47.0); Hemoglobin 10.6 g/dL (12.0-16.0); Mean Corpuscular HGB CONC 32.3 g/dL (32.0-36.0); Mean Corpuscular Volume 83.7 fl (78.0-98.0); Platelet Count 163 10x3/uL (130-400); RBC Distribution Width 14.6 % (11.5-14.5); Red Blood Cell (RBC) Count 3.92 mill/uL (4.20-5.40); White Blood Cell (WBC) Count 9.3 10x3/uL (4.8-10.8)
[2023-06-26 14:35] LABS: INR-International Normal Ratio 1.1; PTT 29.4 sec (22.9-36.1); Prothrombin Time 14.5 sec (12.0-14.7)
[2023-06-26 14:46] LABS: ALT (SGPT) 19 U/L (8-55); AST (SGOT) 118 U/L (5-34); Albumin 3.7 g/dL (3.4-4.8); Alkaline Phosphatase 78 U/L (40-110); Anion Gap 13 mmol/L (10-20); BUN (Urea Nitrogen) 21 mg/dL (9.8-20.1); Bilirubin, Total 0.5 mg/dL (0.2-1.2); Calc. Creatinine Clearance 0 mL/min (70-130); Carbon Dioxide 22 mmol/L (23-31); Chloride 96 mmol/L (98-107); Estimated GFR 73; Globulin 2.4 g/dL (2.4-3.5); Glucose 182 mg/dL (83-110); Potassium 4.2 mmol/L (3.5-5.1); Protein, Total 6.1 g/dL (5.8-8.1); Sodium 127 mmol/L (136-145)
[2023-06-26] MEDS ORDERED: Montelukast Sodium 10 mg Tablet PO PRN (16:34)
[2023-06-26] MEDS ORDERED: Acetaminophen 325 MG TAB PO PRN (16:34)
[2023-06-26] MEDS ORDERED: Ondansetron PF 4 MG/2 ML Vial IVP PRN (16:42)
[2023-06-26 16:57] LABS: #Monocytes 0.5 thou/uL (0.11-0.59); #Neutrophils 7.1 thou/uL (1.40-6.50); %Basophils 0.1 % (0.0-1.0); %Lymphocytes 11.4 % (21.0-51.0); %Monocytes 5.9 % (0.0-10.0); %Neutrophils 82.3 % (42.0-75.0); Hematocrit 30.4 % (36.0-47.0); Hemoglobin 9.8 g/dL (12.0-16.0); Mean Corpuscular HGB CONC 32.2 g/dL (32.0-36.0); Mean Corpuscular Hemoglobin 27.3 pg (27.0-31.0); Mean Corpuscular Volume 84.7 fl (78.0-98.0); Mean Platelet Volume 9.7 fL (7.4-10.4); Platelet Count 143 10x3/uL (130-400); RBC Distribution Width 14.6 % (11.5-14.5); Red Blood Cell (RBC) Count 3.59 mill/uL (4.20-5.40); White Blood Cell (WBC) Count 8.6 10x3/uL (4.8-10.8)
[2023-06-26 17:18] LABS: Anion Gap 15 mmol/L (10-20); BUN (Urea Nitrogen) 18 mg/dL (9.8-20.1); Calc. Creatinine Clearance 0 mL/min (70-130); Calcium 9.8 mg/dL (7.8-10.44); Carbon Dioxide 23 mmol/L (23-31); Chloride 96 mmol/L (98-107); Estimated GFR 85; Glucose 113 mg/dL (83-110); Potassium 4.1 mmol/L (3.5-5.1); Sodium 130 mmol/L (136-145)
[2023-06-26] MEDS ORDERED: Milk Of Magnesia 30 ML UDCUP PO PRN (17:49)
[2023-06-26 18:37] VITALS: BMI 22.1
[2023-06-26] MEDS: ALPRAZolam 0.25 MG TAB PO SCH (20:16)
[2023-06-26] MEDS: Atorvastatin Calcium 40 MG TAB PO SCH (20:16)
[2023-06-26] MEDS: Hydrocortisone 2.5%/Pramoxine 1% CRM 30 GM TUBE TOP SCH (20:18)
[2023-06-26] MEDS: Ivabradine 5 MG TAB PO SCH (20:30)
[2023-06-26 22:05] LABS: Hematocrit 27.8 % (36.0-47.0)
[2023-06-27] MEDS ORDERED: Sodium Chloride 0.9% 500 ML IV SCH (00:30)
[2023-06-27 04:49] LABS: #Monocytes 0.6 thou/uL (0.11-0.59); #Neutrophils 5.4 thou/uL (1.40-6.50); %Basophils 0.1 % (0.0-1.0); %Eosinophils 0.1 % (0.0-10.0); %Lymphocytes 15.7 % (21.0-51.0); %Monocytes 8.6 % (0.0-10.0); %Neutrophils 75.2 % (42.0-75.0); Hematocrit 27.3 % (36.0-47.0); Hemoglobin 8.8 g/dL (12.0-16.0); Mean Corpuscular HGB CONC 32.2 g/dL (32.0-36.0); Mean Corpuscular Hemoglobin 27.4 pg (27.0-31.0); Mean Platelet Volume 10.2 fL (7.4-10.4); RBC Distribution Width 14.8 % (11.5-14.5); Red Blood Cell (RBC) Count 3.21 mill/uL (4.20-5.40); White Blood Cell (WBC) Count 7.2 10x3/uL (4.8-10.8)
[2023-06-27 05:13] LABS: Anion Gap 8 mmol/L (10-20); BUN (Urea Nitrogen) 18 mg/dL (9.8-20.1); Calc. Creatinine Clearance 45 mL/min (70-130); Calcium 9.6 mg/dL (7.8-10.44); Carbon Dioxide 25 mmol/L (23-31); Chloride 100 mmol/L (98-107); Estimated GFR 83; Glucose 110 mg/dL (83-110); Potassium 4.1 mmol/L (3.5-5.1); Sodium 129 mmol/L (136-145)
[2023-06-27] MEDS: Levothyroxine Sodium 100 MCG TAB PO SCH (05:17)
[2023-06-27 05:49] LABS: Platelet Count 133 10x3/uL (130-400)
[2023-06-27] MEDS ORDERED: Clopidogrel Bisulfate 75 MG TAB PO SCH (09:00)
[2023-06-27] MEDS: ALPRAZolam 0.25 MG TAB PO SCH ×2 (09:07→20:09)
[2023-06-27] MEDS: Aspirin 81 mg Enteric Coated Tablet PO SCH (09:07)
[2023-06-27] MEDS: Hydrocortisone 2.5%/Pramoxine 1% CRM 30 GM TUBE TOP SCH (09:08)
[2023-06-27] MEDS: Ivabradine 5 MG TAB PO SCH ×3 (09:09→20:18)
[2023-06-27] MEDS: Lisinopril 2.5 MG TAB PO SCH (09:09)
[2023-06-27 17:21] LABS: #Monocytes 0.6 thou/uL (0.11-0.59); #Neutrophils 4.6 thou/uL (1.40-6.50); %Basophils 0.2 % (0.0-1.0); %Eosinophils 0.5 % (0.0-10.0); %Lymphocytes 20.1 % (21.0-51.0); %Monocytes 9.2 % (0.0-10.0); %Neutrophils 69.7 % (42.0-75.0); Hematocrit 26.4 % (36.0-47.0); Hemoglobin 8.4 g/dL (12.0-16.0); Mean Corpuscular HGB CONC 31.8 g/dL (32.0-36.0); Mean Corpuscular Hemoglobin 27.1 pg (27.0-31.0); Mean Corpuscular Volume 85.2 fl (78.0-98.0); Mean Platelet Volume 9.9 fL (7.4-10.4); Platelet Count 132 10x3/uL (130-400); RBC Distribution Width 14.9 % (11.5-14.5); White Blood Cell (WBC) Count 6.6 10x3/uL (4.8-10.8)
[2023-06-27] MEDS: Atorvastatin Calcium 40 MG TAB PO SCH (20:09)
[2023-06-27] MEDS: Famotidine 20 MG TAB PO SCH (20:09)
[2023-06-28] MEDS: Hydrocortisone 2.5%/Pramoxine 1% CRM 30 GM TUBE TOP SCH ×3 (00:03→20:31)
[2023-06-28 05:30] LABS: #Eosinphils 0.1 thou/uL (0.0-0.7); #Monocytes 0.5 thou/uL (0.11-0.59); #Neutrophils 4.2 thou/uL (1.40-6.50); %Basophils 0.3 % (0.0-1.0); %Eosinophils 1.1 % (0.0-10.0); %Lymphocytes 24.6 % (21.0-51.0); %Monocytes 8.1 % (0.0-10.0); %Neutrophils 65.6 % (42.0-75.0); Hematocrit 24.6 % (36.0-47.0); Hemoglobin 7.8 g/dL (12.0-16.0); Mean Corpuscular HGB CONC 31.7 g/dL (32.0-36.0); Mean Corpuscular Hemoglobin 27.3 pg (27.0-31.0); Mean Platelet Volume 10.2 fL (7.4-10.4); Platelet Count 131 10x3/uL (130-400); RBC Distribution Width 15.1 % (11.5-14.5); Red Blood Cell (RBC) Count 2.86 mill/uL (4.20-5.40); White Blood Cell (WBC) Count 6.4 10x3/uL (4.8-10.8)
[2023-06-28 06:03] LABS: Anion Gap 7 mmol/L (10-20); BUN (Urea Nitrogen) 19 mg/dL (9.8-20.1); Calc. Creatinine Clearance 47 mL/min (70-130); Calcium 9.5 mg/dL (7.8-10.44); Carbon Dioxide 24 mmol/L (23-31); Chloride 103 mmol/L (98-107); Estimated GFR 84; Glucose 94 mg/dL (83-110); Sodium 130 mmol/L (136-145)
[2023-06-28] MEDS: Levothyroxine Sodium 100 MCG TAB PO SCH (06:17)
[2023-06-28] MEDS: Aspirin 81 mg Enteric Coated Tablet PO SCH (08:59)
[2023-06-28] MEDS: Lisinopril 2.5 MG TAB PO SCH (09:00)
[2023-06-28] MEDS: ALPRAZolam 0.25 MG TAB PO SCH ×2 (09:28→20:30)
[2023-06-28] MEDS: Atorvastatin Calcium 40 MG TAB PO SCH (20:30)
[2023-06-28] MEDS: Famotidine 20 MG TAB PO SCH (20:31)
[2023-06-29 04:54] LABS: Hematocrit 26.5 % (36.0-47.0); Hemoglobin 8.2 g/dL (12.0-16.0)
[2023-06-29 05:13] LABS: Anion Gap 10 mmol/L (10-20); BUN (Urea Nitrogen) 18 mg/dL (9.8-20.1); Calc. Creatinine Clearance 48 mL/min (70-130); Calcium 9.2 mg/dL (7.8-10.44); Carbon Dioxide 25 mmol/L (23-31); Chloride 103 mmol/L (98-107); Estimated GFR 84; Glucose 98 mg/dL (83-110); Sodium 134 mmol/L (136-145)
[2023-06-29] MEDS: Levothyroxine Sodium 100 MCG TAB PO SCH (06:11)
[2023-06-29] MEDS: Aspirin 81 mg Enteric Coated Tablet PO SCH (08:13)
[2023-06-29] MEDS: Lisinopril 2.5 MG TAB PO SCH (08:13)
[2023-06-29] MEDS: ALPRAZolam 0.25 MG TAB PO SCH ×2 (08:13→20:42)
[2023-06-29] MEDS ORDERED: Ferrous Sulfate 325 MG TAB PO SCH (10:45)
[2023-06-29] MEDS: Hydrocortisone 2.5%/Pramoxine 1% CRM 30 GM TUBE TOP SCH ×2 (11:51→20:42)
[2023-06-29] MEDS: Famotidine 20 MG TAB PO SCH (20:42)
[2023-06-29] MEDS: Atorvastatin Calcium 40 MG TAB PO SCH (20:42)
[2023-06-30 05:06] LABS: #Eosinphils 0.1 thou/uL (0.0-0.7); #Monocytes 0.6 thou/uL (0.11-0.59); #Neutrophils 3.8 thou/uL (1.40-6.50); %Basophils 0.7 % (0.0-1.0); %Eosinophils 1.8 % (0.0-10.0); %Monocytes 9.6 % (0.0-10.0); %Neutrophils 63.6 % (42.0-75.0); Hematocrit 26.8 % (36.0-47.0); Hemoglobin 8.5 g/dL (12.0-16.0); Mean Corpuscular HGB CONC 31.7 g/dL (32.0-36.0); Mean Corpuscular Hemoglobin 27.3 pg (27.0-31.0); Mean Corpuscular Volume 86.2 fl (78.0-98.0); Mean Platelet Volume 10.1 fL (7.4-10.4); Platelet Count 160 10x3/uL (130-400); RBC Distribution Width 15.3 % (11.5-14.5); Red Blood Cell (RBC) Count 3.11 mill/uL (4.20-5.40)
[2023-06-30 05:28] LABS: Anion Gap 8 mmol/L (10-20); BUN (Urea Nitrogen) 16 mg/dL (9.8-20.1); Calc. Creatinine Clearance 51 mL/min (70-130); Calcium 9.3 mg/dL (7.8-10.44); Carbon Dioxide 25 mmol/L (23-31); Chloride 102 mmol/L (98-107); Estimated GFR 85; Glucose 105 mg/dL (83-110); Potassium 4.2 mmol/L (3.5-5.1); Sodium 131 mmol/L (136-145)
[2023-06-30] MEDS: Levothyroxine Sodium 100 MCG TAB PO SCH (05:36)
[2023-06-30] MEDS: Ferrous Sulfate 325 MG TAB PO SCH (08:43)
[2023-06-30] MEDS: Aspirin 81 mg Enteric Coated Tablet PO SCH (08:43)
[2023-06-30] MEDS: ALPRAZolam 0.25 MG TAB PO SCH ×2 (08:43→20:34)
[2023-06-30] MEDS: Hydrocortisone 2.5%/Pramoxine 1% CRM 30 GM TUBE TOP SCH ×2 (08:43→20:35)
[2023-06-30] MEDS: Lisinopril 2.5 MG TAB PO SCH (08:44)
[2023-06-30] MEDS: Famotidine 20 MG TAB PO SCH (20:34)
[2023-06-30] MEDS: Atorvastatin Calcium 40 MG TAB PO SCH (20:34)
[2023-07-01] MEDS: Levothyroxine Sodium 100 MCG TAB PO SCH (05:16)
[2023-07-01 06:18] LABS: Anion Gap 10 mmol/L (10-20); BUN (Urea Nitrogen) 17 mg/dL (9.8-20.1); Calc. Creatinine Clearance 47 mL/min (70-130); Calcium 9.7 mg/dL (7.8-10.44); Carbon Dioxide 25 mmol/L (23-31); Chloride 101 mmol/L (98-107); Estimated GFR 84; Glucose 106 mg/dL (83-110); Potassium 4.4 mmol/L (3.5-5.1); Sodium 132 mmol/L (136-145)
[2023-07-01] MEDS: ALPRAZolam 0.25 MG TAB PO SCH ×2 (09:38→19:41)
[2023-07-01] MEDS: Ferrous Sulfate 325 MG TAB PO SCH (09:38)
[2023-07-01] MEDS: Lisinopril 2.5 MG TAB PO SCH (09:38)
[2023-07-01] MEDS: Aspirin 81 mg Enteric Coated Tablet PO SCH (09:38)
[2023-07-01 12:20] LABS: Hematocrit 25.5 % (36.0-47.0); Hemoglobin 8.1 g/dL (12.0-16.0)
[2023-07-01] MEDS: Hydrocortisone 2.5%/Pramoxine 1% CRM 30 GM TUBE TOP SCH ×2 (17:03→19:42)
[2023-07-01] MEDS: Atorvastatin Calcium 40 MG TAB PO SCH (19:41)
[2023-07-02 05:50] LABS: Hematocrit 26.7 % (36.0-47.0); Hemoglobin 8.5 g/dL (12.0-16.0)
[2023-07-02] MEDS: Levothyroxine Sodium 100 MCG TAB PO SCH (06:08)
[2023-07-02 06:21] LABS: Anion Gap 11 mmol/L (10-20); BUN (Urea Nitrogen) 14 mg/dL (9.8-20.1); Calc. Creatinine Clearance 50 mL/min (70-130); Calcium 9.7 mg/dL (7.8-10.44); Carbon Dioxide 25 mmol/L (23-31); Chloride 101 mmol/L (98-107); Estimated GFR 85; Glucose 103 mg/dL (83-110); Potassium 4.5 mmol/L (3.5-5.1); Sodium 132 mmol/L (136-145)
[2023-07-02 08:03] VITALS: BP 130/61; TEMP 97.6
[2023-07-02] MEDS: Ferrous Sulfate 325 MG TAB PO SCH (08:05)
[2023-07-02] MEDS: Aspirin 81 mg Enteric Coated Tablet PO SCH (08:06)
[2023-07-02] MEDS: ALPRAZolam 0.25 MG TAB PO SCH (08:06)
[2023-07-02] MEDS: Lisinopril 2.5 MG TAB PO SCH (08:06)
[2023-07-02] MEDS: Hydrocortisone 2.5%/Pramoxine 1% CRM 30 GM TUBE TOP SCH (08:10)
== END 2023-07-02 10:53 | DRG 394 ==
LOC: ERS 13:36 → 2SW 15:55 → OBSVTOIN 06-27 08:07
PROVIDERS: ADMIT Internal Medicine Critical Care Medicine; ATTEND Internal Medicine
DX: K64.8 Other hemorrhoids (principal); E87.1 Hypo-osmolality and hyponatremia; I50.22 Chronic systolic (congestive) heart failure; K64.4 Residual hemorrhoidal skin tags; D50.0 Iron deficiency anemia secondary to blood loss (chronic); Z88.1 Allergy status to other antibiotic agents; Z66 Do not resuscitate; Z79.82 Long term (current) use of aspirin; Z79.899 Other long term (current) drug therapy; I25.10 Atherosclerotic heart disease of native coronary artery without angina pectoris; I25.2 Old myocardial infarction; E03.9 Hypothyroidism, unspecified; M19.90 Unspecified osteoarthritis, unspecified site; I11.0 Hypertensive heart disease with heart failure; F41.9 Anxiety disorder, unspecified
CPT/HCPCS: 36415; 80048; 80053; 85014; 85018; 85025; 85610; 85730; 93005; 93010; J7030